=== PATIENT | male | born 1985 | race Caucasian/White ===

== ENCOUNTER 2017-07-13 06:22 | Emergency (ER) | payer MEDICAID ==
[~2017-07-13] VITALS: Ht 185.4 cm; Wt 165.1 kg
[2017-07-13 06:35] VITALS: BP 164/105; Ht 185.4 cm; Wt 165.1 kg
== END 2017-07-13 07:28 | disposition home or self-care (01) ==
LOC: ED 06:22
DX: I83.92 Asymptomatic varicose veins of left lower extremity (principal); E66.01 Morbid (severe) obesity due to excess calories; F15.10 Other stimulant abuse, uncomplicated; F17.200 Nicotine dependence, unspecified, uncomplicated
CPT/HCPCS: 82962; 90715; 99406

== ENCOUNTER 2017-09-23 23:37 | Emergency (ER) | payer MEDICAID ==
[~2017-09-23] VITALS: Ht 182.9 cm; Wt 163.3 kg
[2017-09-23 23:56] VITALS: Ht 182.9 cm; Wt 163.3 kg
[2017-09-24 02:10] LABS: CALCIUM 8.5 mg/dL (8.5-10.1); CARBON DIOXIDE 27.2 mmol/L (21-32); CHLORIDE SERUM 108 mmol/L (98-107); CREATININE SERUM 0.8 mg/dL (0.7-1.3); GFR1 > 60 mL/min; GLUCOSE SERUM 103 mg/dL (74-106); POTASSIUM SERUM 3.5 mmol/L (3.5-5.1); SODIUM SERUM 144 mmol/L (136-145)
[2017-09-24 02:11] LABS: BASOPHIL % 1.2 % (0-2); PLATELET COUNT 191 x10^3mcL (130-400)
[2017-09-24 02:14] LABS: ALBUMIN 3.8 g/dL (3.4-5.0); ALKALINE PHOSPHATASE 74 U/L (46-116); ALT/SGPT 24 U/L (16-63); AST/SGOT 26 U/L (15-37); BILIRUBIN TOTAL 0.31 mg/dL (0.20-1.00); TOTAL PROTEIN, SERUM 7.1 g/dL (6.4-8.2)
[2017-09-24 03:09] VITALS: BP 147/77
== END 2017-09-24 04:00 | disposition left against medical advice (07) ==
LOC: ED 23:37
PROVIDERS: Emergency Medicine Emergency Medical Services
DX: E66.01 Morbid (severe) obesity due to excess calories (principal); R60.0 Localized edema; F17.210 Nicotine dependence, cigarettes, uncomplicated; Z68.41 Body mass index [BMI] 40.0-44.9, adult
CPT/HCPCS: 36415; 83880; Q0092